=== PATIENT | female | born 1990 | race Caucasian/White ===

== ENCOUNTER → 2020-06-06 08:43 | Outpatient (BNVA) | payer OTHER, SELFPAY | PROVIDERS: PCP Nurse Practitioner Adult Health; Visit Provider Physician Assistant ==

== ENCOUNTER 2020-06-15 10:20 | Outpatient (REF) | payer OTHER, SELFPAY ==
--- NOTE | ~2020-06-15 | XR_ITS ---
EXAMINATION: XR CHEST CLINICAL INFORMATION: Shortness of breath COMPARISON: None TECHNIQUE: 2 views of the chest were obtained. FINDINGS: No significant abnormality is noted involving the heart, lungs, mediastinum, bony thorax or soft tissues. XR/XR chest 2V IMPRESSION: Unremarkable examination.
--- NOTE | 2020-06-15 10:29 | ECG_ITS ---
Test Reason : SOB Blood Pressure : / mmHG Vent. Rate : 061 BPM Atrial Rate : 061 BPM P-R Int : 184 ms QRS Dur : 078 ms QT Int : 392 ms P-R-T Axes : 032 009 006 degrees QTc Int : 394 ms Normal sinus rhythm Cannot rule out Inferior infarct , age undetermined Abnormal ECG No previous ECGs available Referred By: Ashlee Martin Electronically Signed By:MILLIE METZ MD
[2020-06-15 10:59] LABS: MANUAL DIFF FLAG NO
[2020-06-15 11:04] LABS: Basophils Percent Auto 0.4 % (0-2); Eosinophils Absolute Auto 0.3 X10*3/uL (0.0-0.4); Eosinophils Percent Auto 5.7 % (0-4); Hemoglobin 13.6 g/dl (12.0-16.0); Imm Gran Abs Auto 0.01 X10*3/uL (0.00-0.03); Imm Gran Pct Auto 0.2 % (0.0-0.4); Lymphocytes Absolute Auto 1.9 X10*3/uL (1.2-4.9); Lymphocytes Percent Auto 35.6 % (20-40); Mean Corpuscular HGB Conc 33.2 g/dl (31.0-35.0); Mean Corpuscular Hemoglobin 27.5 pg (27.0-33.0); Mean Platelet Volume 9.7 fL (9.4-12.3); Monocytes Absolute Auto 0.5 X10*3/uL (0.1-1.2); Monocytes Percent Auto 9.1 % (2-11); Neutrophils Absolute Auto 2.6 X10*3/uL (2.0-8.3); Platelet Count 279 X10*3/uL (160-400); Red Blood Count 4.94 X10*6/uL (4.20-5.50); Red Cell Distribution Width 13.4 % (11.0-16.0); White Blood Count 5.3 X10*3/uL (4.8-10.8)
[2020-06-15 11:39] LABS: Alanine Aminotransferase 22 U/L (0-31); Albumin Level 4.1 g/dL (3.5-5.0); Alkaline Phosphatase 89 U/L (39-117); Anion Gap 12 (12-20); Aspartate Amino Transferase 21 U/L (5-31); Bilirubin Total 0.6 mg/dL (0.0-1.0); Blood Urea Nitrogen 17 mg/dL (9-16); C Reactive Protein 1.25 mg/dL (< or = 0.50); Calcium 9.1 mg/dL (8.4-10.2); Carbon Dioxide 23 mmol/L (22-29); Chloride 109 mmol/L (96-108); Cholesterol 156 mg/dL; Estimated Glomerular Filt Rate > 60; Glucose Fasting 96 mg/dL (60-99); HDL Cholesterol 48 mg/dL; Iron 36 mcg/dL (30-160); LDL Cholesterol Calculated 100 mg/dl; Percent Iron Saturation 11 % (15-50); Potassium 4.1 mmol/L (3.3-5.1); Sodium 140 mmol/L (135-145); Total Iron Binding Capacity 336 mcg/dL (228-428); Total Protein 6.6 g/dL (6.5-8.0); Triglycerides 44 mg/dL; Unsaturated Iron Binding 300 ug/dL
[2020-06-15 12:23] LABS: Folate 11.7 ng/mL (> or = 4.0); Vitamin B12 308 pg/mL (200-900)
[2020-06-15 12:34] LABS: Estimated Average Glucose 85 mg/dL; Hemoglobin A1c % 4.6 %
[2020-06-15 12:35] LABS: TSH reflex Free T4 2.24 uIU/mL (0.32-4.0); Vitamin D 25-OH Total 10.4 ng/mL (>30)
[2020-06-15 13:05] LABS: Ferritin 59 ng/mL (10-122)
[2020-06-16 11:51] LABS: Insulin Level Total 8.6 uIU/mL
[2020-06-16 13:06] LABS: Calcium (PTHI) 9.2 mg/dL (8.6-10.2); PTHI 62 pg/mL (14-64)
[2020-06-16 15:07] LABS: H Pylori Breath Test NOT DETECTED (NOT DETECTED)
[2020-06-18 00:21] LABS: Zinc 60 mcg/dL (60-130)
[2020-06-19 10:16] LABS: Vitamin A 36 mcg/dL (38-98)
[2020-06-19 13:27] LABS: Vitamin B1 11 nmol/L (8-30)
== END 2020-06-15 10:21 | disposition home or self-care (01) ==
LOC: HO.LAB 10:20
PROVIDERS: Visit Provider Physician Assistant
DX: R06.02 Shortness of breath (principal); E66.01 Morbid (severe) obesity due to excess calories
CPT/HCPCS: 36415; 71046; 80053; 80061; 82306; 82607; 82728; 82746; 83013; 83036; 83525; 83540; 83970; 84425; 84443; 84590; 84630; 85025; 86140; 93005

== ENCOUNTER → 2020-06-21 14:21 | Outpatient (BNVA) | payer OTHER, SELFPAY | PROVIDERS: PCP Nurse Practitioner Adult Health; Visit Provider Surgery ==

== ENCOUNTER → 2020-07-05 08:16 | Outpatient (BNVA) | payer OTHER, SELFPAY | PROVIDERS: PCP Nurse Practitioner Adult Health; Visit Provider Dietitian, Registered | DX: E66.9 Obesity, unspecified (principal); Z68.39 Body mass index [BMI] 39.0-39.9, adult | CPT/HCPCS: 97802 ==

== ENCOUNTER → 2020-07-22 09:10 | Outpatient (BNVA) | payer OTHER, SELFPAY | PROVIDERS: PCP Nurse Practitioner Adult Health; Visit Provider Surgery ==

== ENCOUNTER → 2020-08-12 11:41 | Outpatient (BNVA) | payer OTHER, SELFPAY | PROVIDERS: PCP Nurse Practitioner Adult Health; Visit Provider Physician Assistant ==

== ENCOUNTER 2020-09-30 13:26 | Outpatient (REF) | payer OTHER, SELFPAY ==
[2020-09-30 15:33] LABS: Vitamin D 25-OH Total 47.1 ng/mL (>30)
[2020-10-01 16:15] LABS: Folate 17.1 ng/mL (> or = 4.0); Vitamin B12 622 pg/mL (200-900)
== END 2020-09-30 13:27 | disposition home or self-care (01) ==
LOC: HO.LAB 13:26
PROVIDERS: Physician Assistant; PCP Nurse Practitioner Adult Health; Visit Provider Surgery
DX: E55.9 Vitamin D deficiency, unspecified (principal); E53.8 Deficiency of other specified B group vitamins; E50.9 Vitamin A deficiency, unspecified; E66.9 Obesity, unspecified; Z71.3 Dietary counseling and surveillance; Z79.899 Other long term (current) drug therapy; Z68.38 Body mass index [BMI] 38.0-38.9, adult
CPT/HCPCS: 36415; 82306; 82607; 82746; 84590

== ENCOUNTER → 2021-01-09 12:57 | Outpatient (BNVA) | payer OTHER, SELFPAY | PROVIDERS: PCP Nurse Practitioner Adult Health; Referring Provider Nurse Practitioner Adult Health; Visit Provider Physician Assistant Surgical ==

== ENCOUNTER → 2021-02-03 08:02 | Outpatient (BNVA) | payer OTHER, SELFPAY | PROVIDERS: PCP Nurse Practitioner Adult Health; Visit Provider Surgery ==

== ENCOUNTER → 2021-02-21 09:01 | Outpatient (REF) | payer OTHER, SELFPAY ==
--- NOTE | 2021-02-21 09:05 | CA_ITS ---
Acquisition Time: 2021-02-21 09:04:38 Total Exercise Time: 00:07:28 Test Indications: abn ekg, preop Medications: see chart Protocol: LAURENCE Max HR: 176 BPM 93% of Pred: 189 BPM Max BP: 166/080 mmHG Max Work Load: 9.2 METS Exercise stress test with exercise 7 min 28 sec of Laurence protocol, without anginal symptoms, without arrythmia, with normotensive response to exercise, without EKG changes meeting criteria for ischemia. Test reviewed with Dr Olivera. Referred By: Landon Stewart Overread By: MAXIMILIANO TINAJERO
== END ==
LOC: HO.CARD 09:01
PROVIDERS: Visit Provider Surgery
DX: R94.31 Abnormal electrocardiogram [ECG] [EKG] (principal)
CPT/HCPCS: 93017

== ENCOUNTER 2021-02-23 08:39 | Outpatient (REF) | payer OTHER, SELFPAY ==
--- NOTE | ~2021-02-23 | FL_ITS ---
EXAMINATION: XR FLUOROSCOPY UPPER GI WITH AIR CLINICAL INFORMATION: Obesity. COMPARISON: None TECHNIQUE: Routine upper GI air-contrast study was performed. FINDINGS: Following oral administration of thick barium and effervescent granules, there is normal propagation of bolus from the oral cavity through the esophagus and into the stomach without any evidence of obstruction, narrowing or stricture. The course, caliber and peristalsis of the stomach and the duodenum is normal. There is mild flocculation of barium in the stomach likely from hyperacidity. The course, caliber and peristalsis of the stomach and the duodenal bulb are normal. The mucosal pattern of the stomach and the above is normal. There is mild gastroesophageal reflux without hiatal hernia. FLUOROSCOPY TIME: 1.7 minutes DOSE AREA PRODUCT: 30.015 uGy-m2 (microgray-meter squared) FL/FL upper GI w air IMPRESSION: Mild gastroesophageal reflux without hiatal hernia.
--- NOTE | ~2021-02-23 | US_ITS ---
EXAMINATION: US COMPLETE ABDOMEN WITH LIVER ELASTOGRAPHY CLINICAL INFORMATION: Obesity COMPARISON: None. TECHNIQUE: Real-time imaging of the abdominal viscera. Noninvasive ultrasound liver fibrosis assessment is performed using Gadiel ElastPQ point quantification shear wave elastography (pSWE) with a C5-2 MHz transducer. Multiple elastography samples are obtained. FINDINGS: PANCREAS: Normal. The visualized pancreatic head and body are normal in appearance. The remainder of the pancreas is obscured from visualization by the overlying bowel gas. ABDOMINAL AORTA: The proximal, middle, and distal aortic segments are normal in caliber. INFERIOR VENA CAVA: Visualized portions are normal. LIVER: Normal. The liver demonstrates normal size, contour and echogenicity. No focal lesion or intrahepatic biliary duct dilatation. The right lobe measures 15.1 cm in length. The left lobe measures 11.6 cm in length. Portal flow is hepatopedal Shear wave liver elastography median stiffness is 1.53 m/s (reference: normal median stiffness is 1.3 m/s or less). IQR/median stiffness to assess sampling precision is 0.18 (reference: good quality data set is IQR/median stiffness of 0.15 or less). GALLBLADDER: Cholelithiasis is noted without evidence of acute cholecystitis. COMMON BILE DUCT: Normal in caliber measuring 0.3 cm in diameter. RIGHT KIDNEY: Normal. No hydronephrosis. No renal calculi or focal parenchymal lesions. The kidney measures 10.5 cm in maximum dimension. LEFT KIDNEY: Normal. No hydronephrosis. No renal calculi or focal parenchymal lesions. The kidney measures 11.5 cm in maximum dimension. SPLEEN: Normal. The spleen measures 11.5 cm in maximum dimension. FREE FLUID: None. US/US abdomen comp w elastography IMPRESSION: 1. Cholelithiasis without evidence of acute cholecystitis. 2. Liver elastography: Although measurements appear to rule out compensated advanced chronic liver disease, there is statistical variability of the sampling which decreases accuracy. REFERENCE: Society of Radiologists in Ultrasound Liver Stiffness Thresholds (2020): LIVER STIFFNESS THRESHOLDS: *Liver Stiffness equal or less than 1.3 m/s: High probability of being normal. *Liver Stiffness less than 1.7 m/s: In the absence of other known clinical signs, rules out compensated advanced chronic liver disease. *Liver Stiffness 1.7-2.1 m/s: Suggestive of compensated advanced chronic liver disease but need further test for confirmation. *Liver Stiffness over 2.1 m/s: Rules in compensated advanced chronic liver disease. *Liver Stiffness over 2.4 m/s: Suggestive of clinically significant portal hypertension. QUALITY OF DATA SET: *IQR/Median value equal or less than 0.15 implies a quality data set. *IQR/Median value over 0.15 implies a poor quality data set. SIGNIFICANT CHANGE FROM PRIOR EXAM: Significant change if liver stiffness measurement is 10% or greater from prior exam. OTHER CONSIDERATIONS: The stage of liver fibrosis may be overestimated in the setting of acute hepatitis, liver inflammation, elevated liver function tests, hepatic vascular congestion, obstructive cholestasis, non-fasting state, and infiltrative diseases such as amyloidosis and lymphoma. In some patients with NAFLD, the liver stiffness thresholds for compensated advanced chronic liver disease may be lower. In causes other than viral hepatitis and NAFLD, liver stiffness thresholds are not well established.
== END 2021-02-23 08:40 | disposition home or self-care (01) ==
LOC: HO.US 08:39
PROVIDERS: Visit Provider Surgery
DX: Z01.818 Encounter for other preprocedural examination (principal); E66.9 Obesity, unspecified; K21.9 Gastro-esophageal reflux disease without esophagitis
CPT/HCPCS: 74246; 76705; 76981

== ENCOUNTER → 2021-02-28 08:05 | Outpatient (BNVA) | payer OTHER, SELFPAY | PROVIDERS: PCP Nurse Practitioner Adult Health; Visit Provider Surgery ==

== ENCOUNTER → 2021-03-03 13:15 | Outpatient (BNVA) | payer OTHER, SELFPAY | PROVIDERS: PCP Nurse Practitioner Adult Health; Visit Provider Physician Assistant ==

== ENCOUNTER 2021-03-07 08:27 | Inpatient (IN) | payer OTHER, SELFPAY ==
[2021-02-27 12:03] VITALS: BMI 36.3
[2021-03-03 12:22] LABS: MANUAL DIFF FLAG NO
[2021-03-03 12:36] LABS: Basophils Percent Auto 0.5 % (0-2); Eosinophils Absolute Auto 0.3 X10*3/uL (0.0-0.4); Hematocrit 43.8 % (37.0-47.0); Hemoglobin 14.5 g/dl (12.0-16.0); Imm Gran Abs Auto 0.01 X10*3/uL (0.00-0.03); Imm Gran Pct Auto 0.2 % (0.0-0.4); Lymphocytes Absolute Auto 1.8 X10*3/uL (1.2-4.9); Lymphocytes Percent Auto 29.4 % (20-40); Mean Corpuscular HGB Conc 33.1 g/dl (31.0-35.0); Mean Corpuscular Hemoglobin 27.9 pg (27.0-33.0); Mean Corpuscular Volume 84.4 fL (80.0-98.0); Mean Platelet Volume 10.1 fL (9.4-12.3); Monocytes Absolute Auto 0.5 X10*3/uL (0.1-1.2); Monocytes Percent Auto 7.4 % (2-11); Neutrophils Absolute Auto 3.5 x10*3/uL (2.0-8.3); Neutrophils Percent Auto 57.5 % (45-73); Platelet Count 256 X10*3/uL (160-400); Red Blood Count 5.19 X10*6/uL (4.20-5.50); Red Cell Distribution Width 13.1 % (11.0-16.0); White Blood Count 6.1 X10*3/uL (4.8-10.8)
[2021-03-03 12:41] LABS: Estimated Average Glucose 88 mg/dL; Hemoglobin A1c % 4.7 %; INTERNATIONAL NORM RATIO 1.1 (0.9-1.1); Prothrombin Time 12.5 SEC (9.9-13.0)
[2021-03-03 13:01] LABS: Alanine Aminotransferase 19 U/L (0-31); Albumin Level 4.3 g/dL (3.5-5.0); Alkaline Phosphatase 92 U/L (39-117); Anion Gap 15 (12-20); Aspartate Amino Transferase 17 U/L (5-31); Bilirubin Total 1.4 mg/dL (0.0-1.0); Blood Urea Nitrogen 18 mg/dL (9-16); C Reactive Protein 0.57 mg/dL (< or = 0.50); Calcium 9.6 mg/dL (8.4-10.2); Carbon Dioxide 21 mmol/L (22-29); Chloride 107 mmol/L (96-108); Cholesterol 150 mg/dL; Creatinine Clr Calc Pharmacy 109.3; Estimated Glomerular Filt Rate > 60; Glucose Random 79 mg/dL (60-115); HDL Cholesterol 41 mg/dL; LDL Cholesterol Calculated 99 mg/dl; Potassium 4.2 mmol/L (3.3-5.1); Sodium 139 mmol/L (135-145); Triglycerides 50 mg/dL
[2021-03-03 13:25] LABS: Insulin 6 uU/mL (2-29); TSH reflex Free T4 1.33 uIU/mL (0.32-4.0)
--- NOTE | 2021-03-04 22:08 | MHC.SHP ---
Pre-Procedural Eval Section A Date of Service: 03/04/21 The patient is an INPATIENT: Yes The History & Physical has been completed within 30 days and I have reviewed it.: Yes Section B Chief Complaint: obesity Relevant Family History (Specify if Yes): No Relevant Social History: None Present Medications: None Medical History: No relevant PMH History of Previous Operations: No relevant previous surgery Allergies: Allergies Allergy/AdvReac Type Severity Reaction Status Date / Time amoxicillin Allergy Intermediate Rash Verified 02/28/21 12:16 erythromycin base Allergy rash Verified 02/28/21 12:16 [From Erythrocin] Review of Systems Sugical H&P ROS: Negative: Constitution, Cardiovascular, Respiratory, Neurological, Psychiatric, Hem-Onc, Allergic/Immunologic, Gastrointestinal, Genitourinary, Musculoskeletal, Integumentary, Endocrine and Eyes/Ears/Nose/Throat Exam Surgical H&P Exam: Normal: HEENT, Normal: Heart, Normal: Lungs, Normal: Extremities, Normal: Abdomen, Normal: Skin and Normal: Neurological Plan Diagnosis/Plan: Unchanged I have reviewed the history and physical and performed a pertinent physical examination on my patient. No changes have occurred unless specified.
--- NOTE | 2021-03-06 10:46 | HO.ANESPROP2 ---
Documented by User: Samantha Paulson NP 03/06/21 10:48 [facility] Active Problems Active Problems: All Active Problems (Updated 02/28/21 @ 12:30 by Landno Stewart MD) BMI 36.0-36.9,adult (Acute) BMI 37.0-37.9, adult (Acute) Abnormal EKG (Acute) BMI 38.0-38.9,adult (Acute) Obesity (Acute) BMI 39.0-39.9,adult (Acute) Vitamin A deficiency (Acute) Vitamin B12 deficiency (Acute) Vitamin D deficiency (Acute) ADHD (attention deficit hyperactivity disorder) (Acute) Major depressive disorder (Acute) Morbid obesity (Acute) Past Medical History Medical History ADHD (attention deficit hyperactivity disorder) Major depressive disorder Morbid obesity Vitamin A deficiency Vitamin B12 deficiency Vitamin D deficiency Family History Family History Father History of obesity Mother History of high blood pressure Surgical History Surgical History No significant past surgical history Social History Social History Are you a primary urgent care technician to a significant other at home: No Do you presently have visiting nurse or other home services: No Alcohol intake: current Alcohol intake frequency: holidays/special occasions only Patient Tobacco Use Status: Never used Tobacco Use of substances other than those prescribed or required for medical reasons: No Have you been hit, kicked, punched, or otherwise hurt by someone within the past year? If so, by whom?: No Are you DNR?: No Advance Directives: No Advance Directives Information Provided: Yes (Mailed w/ Pre-op Instructions) Advance Directives on File: No Recently lost weight without trying: No How much weight loss: 24-33 pounds Eating poorly because of decreased appetite: No Nutrition screen score: 3 Nutrition Risks: No Nutritional Risk Patient : No FDLMP: 09/2020 : No Poor oral hygiene: No (Intact teeth) Meds Allergies Allergy/AdvReac Type Severity Reaction Status Date / Time amoxicillin Allergy Intermediate Rash Verified 02/28/21 12:16 erythromycin base Allergy rash Verified 02/28/21 12:16 [From Erythrocin] Home Medications Medication Instructions Recorded Confirmed Last Taken Type desvenlafaxine succinate 50 mg 50 mg PO DAILY 06/06/20 02/28/21 Unknown History tablet,extended release 24 hr (Pristiq) dextroamphetamine-amphetamine 20 20 mg PO BID 06/06/20 02/28/21 Unknown History mg tablet (Adderall) medroxyprogesterone 104 mg/0.65 mL mg SUBCUT 01/09/21 02/28/21 Unknown History subcutaneous syringe (Depo-SubQ provera 104) Exam Exam Date and Time: March 06, 2021 1046 Height,Weight and Vital Signs: Height 5 ft 7 in Weight 105.233 kg Pertinent Lab Results Pertinent Lab Results: Laboratory Tests 03/03/21 03/03/21 03/03/21 12:15 12:20 12:20 WBC 6.1 RBC 5.19 Hgb 14.5 Hct 43.8 MCV 84.4 MCH 27.9 MCHC 33.1 RDW 13.1 Plt Count 256 MPV 10.1 Immature Gran % (Auto) 0.2 Neut % (Auto) 57.5 Lymph % (Auto) 29.4 Whitfield % (Auto) 7.4 Eos % (Auto) 5.0 H Baso % (Auto) 0.5 Lymph # (Auto) 1.8 Whitfield # (Auto) 0.5 Eos # (Auto) 0.3 Baso # (Auto) 0.0 Abs Immat Gran (auto) 0.01 Absolute Neuts (auto) 3.5 Absolute Nucleated RBC 0.000 Nucleated RBC % (auto) 0.0 PT 12.5 INR 1.1 APTT 44.0 H Sodium Potassium Chloride Carbon Dioxide Anion Gap BUN Creatinine Estim Creat Clear Calc Estimated GFR Random Glucose Estimat Average Glucose Hemoglobin A1c % Insulin Level Calcium Total Bilirubin AST ALT Alkaline Phosphatase C-Reactive Protein Total Protein Albumin Triglycerides Cholesterol LDL Cholesterol, Calc HDL Cholesterol TSH Blood Type O Negative Antibody Screen NEGATIVE 03/03/21 03/03/21 12:20 12:20 WBC RBC Hgb Hct MCV MCH MCHC RDW Plt Count MPV Immature Gran % (Auto) Neut % (Auto) Lymph % (Auto) Whitfield % (Auto) Eos % (Auto) Baso % (Auto) Lymph # (Auto) Whitfield # (Auto) Eos # (Auto) Baso # (Auto) Abs Immat Gran (auto) Absolute Neuts (auto) Absolute Nucleated RBC Nucleated RBC % (auto) PT INR APTT Sodium 139 Potassium 4.2 Chloride 107 Carbon Dioxide 21 L Anion Gap 15 BUN 18 H Creatinine 0.93 Estim Creat Clear Calc 109.3 Estimated GFR > 60 Random Glucose 79 Estimat Average Glucose 88 Hemoglobin A1c % 4.7 Insulin Level 6 Calcium 9.6 Total Bilirubin 1.4 H AST 17 ALT 19 Alkaline Phosphatase 92 C-Reactive Protein 0.57 H Total Protein 7.0 Albumin 4.3 Triglycerides 50 Cholesterol 150 LDL Cholesterol, Calc 99 HDL Cholesterol 41 TSH 1.33 Blood Type Antibody Screen Narrative Narrative: EKG 05/2020 Vent. Rate : 061 BPM ? ? Atrial Rate : 061 BPM ?? P-R Int : 184 ms? QRS Dur : 078 ms ? ? QT Int : 392 ms ? ? ? P-R-T Axes : 032 009 006 degrees ?? QTc Int : 394 ms ? Normal sinus rhythm Cannot rule out Inferior infarct , age undetermined Abnormal ECG No previous ECGs available Exercise stress 02/2021 Protocol: RAJI ? Max HR: 176 BPM? 93% of? Pred: 189 BPM Max BP: 166/080 mmHG Max Work Load: 9.2 METS ? Exercise stress test with exercise 7 min 28 sec of Raji protocol, without ?anginal symptoms, without arrythmia, with normotensive response to exercise, ?without EKG changes meeting criteria for ischemia. Test reviewed with Dr Olivera. Assessment and Plan Assessment Anesthesia Assessment: Chart Reviewed Documented by User: Nicole Patel MD 03/07/21 10:25 HPI - Anesthesia Eval Consult details Narrative: 30yo female patient for EGD, Sleeve gastrectomy, possible diaphragmatic hernia repair, possible ventral hernia repair, possible open PMFSH Past Medical History Medical History ADHD (attention deficit hyperactivity disorder) Major depressive disorder Morbid obesity Vitamin A deficiency Vitamin B12 deficiency Vitamin D deficiency Family History Family History Father History of obesity Mother History of high blood pressure Family history of problems with anesthesia: No Surgical History Surgical History No significant past surgical history History of Problems with Anesthesia: No Social History Social History Are you a primary urgent care technician to a significant other at home: No Do you presently have visiting nurse or other home services: No Alcohol intake: current Alcohol intake frequency: holidays/special occasions only Patient Tobacco Use Status: Never used Tobacco Use of substances other than those prescribed or required for medical reasons: No Have you been hit, kicked, punched, or otherwise hurt by someone within the past year? If so, by whom?: No Are you DNR?: No Advance Directives: No Advance Directives Information Provided: Yes (Mailed w/ Pre-op Instructions) Advance Directives on File: No Recently lost weight without trying: No How much weight loss: 24-33 pounds Eating poorly because of decreased appetite: No Nutrition screen score: 3 Nutrition Risks: No Nutritional Risk Patient : No FDLMP: 09/2020 : No Poor oral hygiene: No (Intact teeth) Meds Allergies Allergy/AdvReac Type Severity Reaction Status Date / Time amoxicillin Allergy Intermediate Rash Verified 02/28/21 12:16 erythromycin base Allergy rash Verified 02/28/21 12:16 [From Erythrocin] Home Medications Medication Instructions Recorded Confirmed Last Taken Type desvenlafaxine succinate 50 mg 50 mg PO DAILY 06/06/20 02/28/21 Unknown History tablet,extended release 24 hr (Pristiq) dextroamphetamine-amphetamine 20 20 mg PO BID 06/06/20 02/28/21 Unknown History mg tablet (Adderall) medroxyprogesterone 104 mg/0.65 mL mg SUBCUT 01/09/21 02/28/21 Unknown History subcutaneous syringe (Depo-SubQ provera 104) Exam Height,Weight and Vital Signs: Height 5 ft 7 in Weight 105.233 kg Vital Signs Temp Pulse Resp BP Pulse Ox 03/07/21 08:49 98.1 F 75 16 104/69 98 Pertinent Lab Results Pertinent Lab Results: Laboratory Tests 03/03/21 03/03/21 03/03/21 12:15 12:20 12:20 WBC 6.1 RBC 5.19 Hgb 14.5 Hct 43.8 MCV 84.4 MCH 27.9 MCHC 33.1 RDW 13.1 Plt Count 256 MPV 10.1 Immature Gran % (Auto) 0.2 Neut % (Auto) 57.5 Lymph % (Auto) 29.4 Whitfield % (Auto) 7.4 Eos % (Auto) 5.0 H Baso % (Auto) 0.5 Lymph # (Auto) 1.8 Whitfield # (Auto) 0.5 Eos # (Auto) 0.3 Baso # (Auto) 0.0 Abs Immat Gran (auto) 0.01 Absolute Neuts (auto) 3.5 Absolute Nucleated RBC 0.000 Nucleated RBC % (auto) 0.0 PT 12.5 INR 1.1 APTT 44.0 H Sodium Potassium Chloride Carbon Dioxide Anion Gap BUN Creatinine Estim Creat Clear Calc Estimated GFR Random Glucose Estimat Average Glucose Hemoglobin A1c % Insulin Level Calcium Total Bilirubin AST ALT Alkaline Phosphatase C-Reactive Protein Total Protein Albumin Triglycerides Cholesterol LDL Cholesterol, Calc HDL Cholesterol TSH Blood Type O Negative Antibody Screen NEGATIVE 03/03/21 03/03/21 12:20 12:20 WBC RBC Hgb Hct MCV MCH MCHC RDW Plt Count MPV Immature Gran % (Auto) Neut % (Auto) Lymph % (Auto) Whitfield % (Auto) Eos % (Auto) Baso % (Auto) Lymph # (Auto) Whitfield # (Auto) Eos # (Auto) Baso # (Auto) Abs Immat Gran (auto) Absolute Neuts (auto) Absolute Nucleated RBC Nucleated RBC % (auto) PT INR APTT Sodium 139 Potassium 4.2 Chloride 107 Carbon Dioxide 21 L Anion Gap 15 BUN 18 H Creatinine 0.93 Estim Creat Clear Calc 109.3 Estimated GFR > 60 Random Glucose 79 Estimat Average Glucose 88 Hemoglobin A1c % 4.7 Insulin Level 6 Calcium 9.6 Total Bilirubin 1.4 H AST 17 ALT 19 Alkaline Phosphatase 92 C-Reactive Protein 0.57 H Total Protein 7.0 Albumin 4.3 Triglycerides 50 Cholesterol 150 LDL Cholesterol, Calc 99 HDL Cholesterol 41 TSH 1.33 Blood Type Antibody Screen Laboratory Results - last 24 hr 03/06/21 03/07/21 12:25 08:35 Urine Test NEGATIVE COVID-19 (DEEJAY) Negative COVID-19 Clin Com See Note Airway Mallampati Class: II TM Dist: >3cm Neck ROM: Full Loose/Missing/Broken Teeth: No Heart: RRR Lungs: CTAB Assessment and Plan Assessment Anesthesia Assessment: Anesthesia Plan Discussed Final Anesthetic Review Family History of Problems with Anesthesia: No History of Problems with Anesthesia: No NPO: Yes ASA Class: III Final Preanesthetic Review: No Changes in Pt Med Stat, Meds/Allgs Chart Reviewed, Consent Obtained/Reviewed and Anes Risks/Benef Reviewed Patient Risk: Intermediate Procedure Risk: Intermediate Assessment/Block/Sedation in SS: Assess/Block/Sedation-SS Anesthetic Plan Anesthetic Plan: GA Disposition: Standard PACU and Inp. Admit - Standard Bed
[2021-03-06 13:01] LABS: COVID-19 Test Negative (Negative)
[2021-03-07] VITALS (15 sets, daily range): BP systolic 104–171; BP diastolic 69–97; PULSE 51–101; RESP 14–18; TEMP 36.5–36.8; O2SAT 94–100
[2021-03-07 08:56] LABS: UPreg QC Valid YES; Urine Pregnancy NEGATIVE (NEGATIVE)
[2021-03-07] MEDS: Lactated Ringers 1,000 ML 999 ML IV (08:58)
[2021-03-07] MEDS: Lactated Ringers 1,000 ML 100 ML IVCONT ×2 (08:59→15:23)
[2021-03-07] MEDS: levoFLOXacin/D5W 500 MG/100 ML PIGGYBACK 100 MG IV (10:39)
--- NOTE | 2021-03-07 13:03 | P.DS_ITS ---
DS: Providers Provider Date of Service: 03/08/21 Date of admission: 03/07/21 08:27 Primary care physician: Ama Arroyo NP DS: Summary Hospital Course Hospital Course: ADMITTING DIAGNOSIS: morbid obesity, ADHD, diaphragmatic hernia DISCHARGE DIAGNOSIS: same, s/p laparoscopic sleeve gastrectomy and repair diaphragmatic hernia PAST SURGICAL HISTORY: none PROCEDURE: upper endoscopy, laparoscopic sleeve gastrectomy and repair of diaphragmatic hernia hernia DISCHARGE SUMMARY: History of Present Illness: The patient is a 30 year-old woman with a BMI of 40.6kg/m2 and associated co- morbidities as described above. The patient had extensive work-up,lost 31.1 lbs preoperatively and was electively scheduled for laparoscopic, possible open sleeve gastrectomy and gastropexy. Risks and complications of the surgery were discussed with the patient in advance, particularly the possibility of , pulmonary embolism, anastomotic leak, bleeding, bowel injury, GERD, cardiac, renal or pulmonary complications. The patient understood all the risks and was in agreement with the surgical plan. Hospital Course: The patient underwent an uneventful laparoscopic sleeve gastrectomy with gastropexy and repair of diaphragmatic hernia on the day of admission. Postoperatively, the patient was transferred to the surgical floor. The patient received IV Acetaminophen and IV dilaudid for pain control. Patient was started on bariatric phase 1 diet POD #0. On postoperative day one, the patient was feeling well without nausea, vomiting, fevers, or tachycardia. The patient had some mild incisional pain and the abdomen was soft. On the morning of postoperative day one, the patient was continued on 1 ounce of water or ice every half hour. During the day, the patient did fairly well, having some incisional pain, but able to ambulate adequately and to tolerate liquids well. Since the patient is doing well, we decided that the patient was ready to be discharged. The patient was given instructions to follow-up with me next week and to call my office for any fever over 101, persistent abdominal pain, nausea, vomiting, GERD, symptoms of DVT such as calf tenderness, or leg swelling, or pulmonary embolism such as chest pain or shortness of breath. The patient was also instructed to drink 40-60 ounces of liquids per day using the 1-ounce cups. The patient had been given prescriptions for Tylenol for pain, Zofran prn for nausea, and pantoprazole and carafate previously. The patient was encouraged to ambulate and use the incentive spirometer. The patient was allowed to shower, but no baths, and encouraged to stay active at home. All of these instructions were given to the patient personally. All questions were answered and the patient understood all instructions, the instructions were also given to the patient in print. Time Spent with Patient Time attestation: Total time spent providing and/or coordinating discharge services: Discharge coordination time: Less than 30 minutes Quality: Stroke Does the patient have a stroke diagnosis?: No Physical Exam Vital Signs: Vital Signs: Last Vital Signs Temp 98.1 F 03/07/21 08:49 Pulse 75 03/07/21 08:49 Resp 16 03/07/21 08:49 BP 104/69 03/07/21 08:49 Pulse Ox 98 03/07/21 08:49 BMI result Body Mass Index 36.3 DS: Data Data Completed and Pending Pending studies at discharge: Pending at discharge 03/07/21 12:05 Surgical [PTH] Routine Labs on day of discharge: Laboratory Results - last 24 hr 03/07/21 08:35 Urine Test NEGATIVE Discharge Plan Discharge Anticipated Discharge Date/Time: 03/08/21 10:00 Patient Disposition: Home, Self-Care Discharge Diagnosis: s/p sleeve gastrectomy and paraesophageal hernia repair Referrals: Ama Arroyo NP [Primary Care Provider] - 1 Week Discharge Medications: Continued dextroamphetamine-amphetamine [Adderall] 20 mg tablet 20 mg PO BID RF: 0 desvenlafaxine succinate [Pristiq] 50 mg tablet extended release 24 hr 50 mg PO DAILY RF: 0 pantoprazole 40 mg tablet,delayed release (DR/EC) 40 mg PO DAILY Qty: 30 RF: 2 sucralfate 100 mg/mL suspension 10 ml PO BID Qty: 400 RF: 2 ondansetron HCl 4 mg tablet 4 mg PO Q12H Qty: 20 RF: 0 Depo-SubQ provera 104 104 mg/0.65 mL syringe subcut RF: 0 Discontinued polyethylene glycol 3350 [Miralax] 17 gram powder in packet 17 g PO DAILY Qty: 14 RF: 2 Discharge Orders: Discharge Order (Routine); Ordered 03/08/21 Ordered By: Landon Stewart Diet: other Activity on Discharge: No heavy lifting Stand Alone Forms: Patient Portal Discharge page Care Plan Goals: weight loss Health Concerns: obesity Plan of Treatment: No tub baths, sex or returning to work until discussed at first post op appointment. No exercise, alcohol, tobacco or illegal drug use. Continue to use incentive spirometer hourly while awake. Walk in home for 5- 10 minutes every 2 hours during the first week. Continue phase 1 diet today and start phase 2 diet tomorrow morning. Follow all instructions in the bariatric handbook and call with any questions. 1. Please call your doctor or come back to the emergency room should any new symptoms arise. 2. You will receive a courtesy call from [facility] 24-48 hours after discharge. 3. Activity: abstain from alcohol, practice limited stair climbing, no bending, no driving, no exercise, no illicit substances, no lifting, no sex, no tub bath, no work. 4. Diet: continue as discussed with Dr. Stewart. 5. Dressing Change/Wound Care: Do not change or remove surgical dressings unless they are wet or soiled. 6. Call your doctor if: - Your temperature exceeds 101.5 F - You experience excessive pain or swelling - You have an unexpected reaction to medication - You have excessive bleeding - You experience continued vomiting/nausea - Your incision begins to separate - Your incision shows signs of infection such as increased redness, swelling, excessive pain, heat, or drainage (light blood or clear fluid is normal) 7. General instructions: No lifting greater than 5 lbs for the next 4 weeks[address] driving within 24 hours of taking narcotic pain medications. If you do not move your bowels in the next 2 days, please take milk of magnesia over the counter. Please follow the post op diet and do not advance your diet until you are seen in the office in about 2 weeks. Please walk around your home every hour or two to prevent blood clots from forming in your legs. You do not need to wake from sleeping to walk. Please sleep in a bed or couch to prevent kinking at the hips and knees. Please take your incentive spirometer (your lung nursing specialist) home with you and use it for the next few days to prevent pneumonias. You may shower, no hot tubs, baths or swimming pools. Please call the office with any questions or concerns such as increasing abdominal pain, fever, chills, shortness of breath, chest pain, leg pain or swelling, or redness or drainage from your incisions. Do not hesitate to contact the office with any questions at . The patient's medical history has been reviewed and they are considered low risk for post op DVT and therefore DVT prophylaxis is not considered necessary. Travel after surgery was reviewed. The patient has not disclosed any travel p lans during the first 30 days after surgery and they have been advised that within the first 30 days after surgery any bus, plane, train or car travel over 2 hours in duration is contraindicated due to the possibility of developing blood clots from immobility. Any travel, needs to include periods of ambulation of 10 minutes in duration every 2 hours. The patient was instructed to discuss any plans for travel during this period with their bariatric surgeon. Assessment: stable post op sleeve gastrectomy
--- NOTE | 2021-03-07 13:03 | P.BOP_ITS ---
Brief Operative Note Date of Service: 03/07/21 Pre-op diagnosis: Severe obesity and comorbidities (see below) Post-op diagnosis: same (& diaphragmatic hernia) Procedure: INITIAL PATIENT BMI ON PRESENTATION AT OUR OFFICE: 40.6 kg/m2 LAST BMI BEFORE SURGERY: 36.2 kg/m2 COMORBIDITIES: ADHD, GERD, depression, liver steatosis, liver fibrosis ?The patient presented to the Weight Management Program with significant obesity that was negatively impacting the patient's comorbidities as listed above.? The program is a phased program with a special focus on preoperative medical weight management to promote substantial weight loss and prepare the patients for the second phase of the program: bariatric surgery. The patient participated in an intensive weekly lifestyle ?intervention and exercise program during which the patient ?has lost between the initial office visit and the last preoperative visit 33.3lbs, or12.63 % of initial actual body weight. It was deemed appropriate for the patient to now have bariatric surgery. In light of the cur rent Covid-19 pandemic and the well documented strong association of obesity and increased risk of worse outcomes if infected with Covid-19 (REFERENCES: https://pubmed.ncbi.nlm.nih.gov/80268347/ ,? https://pubmed.ncbi.nlm.nih.gov/62414981/ ), any delay in undergoing bariatric surgery may lead to the patient's worsening health condition and increased?risk of more severe Covid-19 disease if infected. In addition a recent?study from [facility] published in [facility] on 02/13/2021 ([email or web address]) found that, among patients with obesity, substantial weight loss achieved with surgery was associated with improved outcomes of COVID-19 infection. The findings suggest that obesity can be a modifiable risk factor for the severity of COVID-19 infection. In addition, the patient met the BMI-criteria for bariatric surgery based on the BMI on initial presentation. The patient should not be penalized for achieving such weight loss because ?it is not sustainable long-term without surgical intervention and it was achieved in preparation for bariatric surgery ?under my direction and based on my published research ([email or web address]).[email or web address] and? https://www.soard.org/article/G2439-8248(16)75086-X/pdf ) ?that a 10% preoperative weight loss improves long-term weight loss after surgery and reduces perioperative complications.? Insurance carriers such as [facility] have endorsed my recommendations ?and have included in their policies criteria to include a 10% preoperative weight loss requirement. PROCEDURE: Esophago-gastroscopy, laparoscopic repair of incarcerated diaphragmatic hernia, laparoscopic lysis of adhesions, laparoscopic sleeve gastrectomy and laparoscopic gastropexy INDICATIONS: This is a 30 year-old female who was electively scheduled for laparoscopic, possibly open sleeve gastrectomy. The risks and complications of the procedure were discussed with the patient in advance, particularly the possibility of ; pulmonary embolism; staple line leak; bleeding; GERD; cardiac, pulmonary, or renal complications; as well as long-term problems such as insufficient weight loss, vitamin deficiency, strictures, or ulcers. The patient understood all the risks, and was in agreement to proceed with surgery. DESCRIPTION OF PROCEDURE: After informed consent was obtained from the patient, the patient was given preoperative antibiotics, and was transferred to the operating room. After successful induction of general anesthesia, pneumatic compression devices were placed on both lower extremities. An upper endoscopy was performed next. The oropharynx and esophagus appeared to be within normal limits. There was a diaphragmatic hernia present of moderate size that was not reported at the preoperative upper GI. The stomach was entered. Then after all fluid and air were suctioned and the stomach was fully decompressed, the scope was withdrawn and secured in the mid esophagus. The patient was then prepped and draped in the usual sterile manner, and abdominal access was established at the right upper quadrant with the Norbert technique. A 12 mm blunt port was inserted, and the abdomen was insufflated with CO2 to a pressure of 15 mmHg. Under direct visualization, additional ports were placed, specifically two 5 mm Versi-step ports to the left upper quadrant, and a 5 mm Versi-Step port to the right upper quadrant. 1% lidocaine plain was used to infiltrate all port sites as well as all fascia defects. Using the EndoClose suture passer device, I placed a #1 Polysorb tie across the falciform ligament in order to retract it up against the abdominal wall and prevent injury of the ligament with our instruments during the procedure. Following that, the patient was placed in a steep reverse Trendelenburg position. An additional 5 mm port was placed to the right flank for the Mediflex retractor that was used to retract the left lobe of the liver. The gastro-esophageal fat pad was opened with the ultrasonic device (Thunderbeat, Olympus) and the anterior esophagus and hiatus were exposed. The angle of His was opened with the ultrasonic device the fundus of the stomach from any diaphragmatic and splenic attachments. I then opened the gastrocolic ligament between the transverse colon and the greater curvature of the stomach with the ultrasonic device to enter the lesser sac and facilitate the ligation of the short gastric vessels. I started at a mid-point along the greater curvature and using the Thunderbeat, all short gastric vessels were divided all the way to the angle of His until the left catrina was completely dissected at its entirety. I then divided the gastro-colic ligament distally to a distance of about 3-4 cm proximal to the esophagus. There was an obvious significant-sized hiatal hernia. I continued dissecting along the hiatus toward the left catrina and the angle of His. I fully mobilized the fat pad that was incarcerated in the hernia. I then continued by dissecting even further into the posterior retro-esophageal space all the way to the angle of His. I continued to mobilize the esophagus into the mediastinum circumferentially. Both vagal nerves were seen and preserved. At that point, I was able to have at least 3 to 5 cm of esophagus into the abdomen.? After I completely mobilized the esophagus from both the left and right catrina and I had a good mobilization of the esophagus circumferentially, I closed the hernia defect with three interrupted #0 Surgidac sutures using the Endo Stitch device, two of which was placed posterior and one of which anterior to the esophagus. ? The stomach was then divided transversely with one Endo SCARLETT-45 purple, and four SCARLETT-60 articulating orange loads using the AEON stapler and loads. Every effort was made that the gastric sleeve had a tubular shape and an even caliber throughout. Once the sleeve resection was completed, the staple line of the gastric sleeve was reinforced with Hemoclips. The resected stomach was retrieved without difficulty from the Norbert port. A gastropexy was then performed in order to prevent postoperative GERD and partial gastric volvulus. Several interrupted 2.0 Surgidac sutures were placed between the sleeve's staple line and the previously divided greater omentum and gastro-colic ligament using the Endo-Stitch device. ?An upper endoscopy was performed. There was no narrowing at the GE junction. The scope was easily advanced all the way to the pylorus which was clearly visualized. There was no narrowing anywhere and the sleeve's caliber was even throughout. The sleeve's staple line was inspected and there was no evidence of ischemia, bleeding or dehiscence. At that point the gastroscope was withdrawn from the patient?s mouth while we were decompressing the bowel and the stomach from any remaining air. I looked into the lesser sac to see how the sleeve was situating and it was situating well. There was no bleeding from the staple line, spleen, or short gastric vessels. The Mediflex retractor was removed, and the undersurface of the liver was inspected and there was no bleeding. The patient was placed in supine position. I closed the fascial defect of the 12 mm port site with a figure of eight #1 Polysorb suture. Then 100 cc 0.25 % Marcaine plain with 10 mg of Dexamethasone were used to infiltrate the fascial closure as well as all skin incisions. At this point, the abdomen was deflated, all ports were removed under direct vision, and no bleeding was noted from any of the port sites. The skin incisions were irrigated with saline and were closed with 4-0 absorbable monofilament sutures. Steri-Strips and OpSites were used to cover all incisions. The patient was extubated and was transferred in stable condition to the recovery room for further care. I was present and performed all benito parts of the procedure. Rafael Sexton was the assistant professor of art. There were no residents to assist with this case. Ashkan Stewart MD, PhD, FACS Surgeon: Landon Stewart MD Anesthesia: GETA, local and other (TAP block) Was an Meter/Relay Technician used for this Procedure?: Yes Meter/Relay Technician: Elis Sexton Estimated blood loss (mL): 10 IV fluids (mL): 2,500 Urine output (mL): 0 (No Monzon to record) Pathology: other (Stomach) Condition: stable Disposition: PACU
--- NOTE | 2021-03-07 13:07 | P.PNGS_ITS ---
Subjective Subjective Date of Service: 03/08/21 Interval history: Patient has mild incisional pain, but was able to ambulate and use the incentive spirometer. She is tolerating phase 1 bariatric diet Physical Exam Vital Signs: Vital Signs: Last Vital Signs Temp 98.1 F 03/07/21 08:49 Pulse 75 03/07/21 08:49 Resp 16 03/07/21 08:49 BP 104/69 03/07/21 08:49 Pulse Ox 98 03/07/21 08:49 BMI result Body Mass Index 36.3 GI: Inspection: Yes normal to inspection, Yes incision (clean, dry and intact) and Yes obesity Extrem: Right lower extremity: normal to inspection (no calf tenderness) Left lower extremity: normal to inspection (no calf tenderness) Objective Data Active Medications Fentanyl (Fentanyl Citrate/Pf 100 Mcg/2 Ml Vial) 25 mcg IVPUSH Q5M PRN; Protocol PRN Reason: Pain, Moderate (Pain Scale 4-6 Hydromorphone HCl (Hydromorphone Hcl 0.5 Mg/0.5 Ml Syringe) 0.25 mg IVPUSH Q5M PRN; Protocol PRN Reason: Pain, Severe (Pain Scale 7-10) Lactated Ringer's (Lr) 1,000 mls @ 100 mls/hr IVCONT .Q10H LOLY Last Admin: 03/07/21 08:59 Dose: 100 mls/hr Documented by: MARITZA Promethazine HCl 6.25 mg/ (Sodium Chloride) 50.25 mls @ 201 mls/hr IV ONCE PRN PRN Reason: Nausea and Vomiting Ondansetron HCl (Ondansetron Hcl 4 Mg/2 Ml Vial) 4 mg IVPUSH ONCE PRN PRN Reason: Nausea and Vomiting Labs CBC & Chem 7: 03/08/21 08:15 03/08/21 08:15 Labs: Laboratory Results - last 24 hr 03/07/21 08:35 Urine Test NEGATIVE Procedures Date of Service Date of Service: 03/08/21 Progress Note: A&P Assessment and plan (1) S/P laparoscopic sleeve gastrectomy: Status: Acute Assessment and Plan: s/p laparoscopic sleeve gastrectomy, repair of diaphragmatic hernia, and gastro pexy Doing well Check am labs. If OK, will discharge home? (2) S/P repair of paraesophageal hernia: Status: Acute (3) Paraesophageal hernia: Status: Acute (4) Obesity: (5) BMI 36.0-36.9,adult: (6) ADHD (attention deficit hyperactivity disorder): (7) Major depressive disorder: (8) GERD (gastroesophageal reflux disease): Status: Acute (9) Liver fibrosis: Status: Acute (10) Steatosis, liver: Status: Acute Fall Risk Details Current Medications: Current Medications Fentanyl (Fentanyl Citrate/Pf 100 Mcg/2 Ml Vial) 25 mcg IVPUSH Q5M PRN; Protocol PRN Reason: Pain, Moderate (Pain Scale 4-6 Hydromorphone HCl (Hydromorphone Hcl 0.5 Mg/0.5 Ml Syringe) 0.25 mg IVPUSH Q5M PRN; Protocol PRN Reason: Pain, Severe (Pain Scale 7-10) Lactated Ringer's (Lr) 1,000 mls @ 100 mls/hr IVCONT .Q10H LOLY Last Admin: 03/07/21 08:59 Dose: 100 mls/hr Documented by: Promethazine HCl 6.25 mg/ (Sodium Chloride) 50.25 mls @ 201 mls/hr IV ONCE PRN PRN Reason: Nausea and Vomiting Ondansetron HCl (Ondansetron Hcl 4 Mg/2 Ml Vial) 4 mg IVPUSH ONCE PRN PRN Reason: Nausea and Vomiting Time Spent With Patient Time: Total time spent is greater than 50% in coordination of care (as documented) at patient's floor/unit and/or counseling patient: Time with patient: less than 15 minutes Quality Stroke Does the patient have a stroke diagnosis?: No VTE Prior VTE?: No VTE Risk Level:: Surgical - moderate VTE Device Contraindication: N/A - Device Ordered VTE Drug Contraindication: Treatment Not Indicated
[2021-03-07 13:50] LABS: Hematocrit 40.9 % (37.0-47.0); Hemoglobin 13.1 g/dl (12.0-16.0)
[2021-03-07 14:06] LABS: Anion Gap 15 (12-20); Blood Urea Nitrogen 12 mg/dL (9-16); Calcium 8.6 mg/dL (8.4-10.2); Carbon Dioxide 19 mmol/L (22-29); Chloride 109 mmol/L (96-108); Creatinine Clr Calc Pharmacy 125.5; Estimated Glomerular Filt Rate > 60; Glucose Random 98 mg/dL (60-115); Sodium 139 mmol/L (135-145)
[2021-03-07] MEDS: Famotidine/PF 20 MG/2 ML VIAL IVPUSH ×2 (14:06→21:05)
[2021-03-07] MEDS: 0.9 % Sodium Chloride Flush 3 ML SYRINGE IVFLUSH (15:24)
[2021-03-07] MEDS: HYDROmorphone HCl 0.5 MG/0.5 ML SYRINGE 0.25 MG IVPUSH (17:30)
[2021-03-07] MEDS: ondansetron HCL 4 MG/2 ML VIAL IVPUSH (19:29)
--- NOTE | 2021-03-07 19:47 | PC.NURSE ---
OOB AMBULATED TO BATHROOM TO VOID 200 ML YELLOW URINE. PATIENT AMBULATE IN PACU AREA. STEADY GAIT. RETURNED TO BED, HELPED REPOSITION PATIENT FOR POSITION OF COMFORT. PATIENT REPORTS MORE COMFORTABLE NOW THAT SHES AMBULATED
--- NOTE | 2021-03-07 20:44 | PC.NURSE ---
PATIENT AWAKE, COMPLAINTS OF RIGHT UPPER BACK, SHOULDER, AND NECK DISCOMFORT. REPOSITIONED PATIENT. GENTLE MASSAGE TO THE AREA IN ATTEMPT TO GIVE RELIEF AND ICE PACKS APPLIED. PATIENT REPORTS NO ABDOMINAL PAIN PRIMARY MUSCLE AND SKELETAL DISCOMFORT. EDUCATED DILAUDID DOSE TOO EARLY AND RELATED TO HR BARDYCARDIA 50'S TRIAL FOR SYMPTOMATIC RELIEF. IV TYLENOL GTT INFUSING ORDERED
[2021-03-07] MEDS: Metoclopramide HCl 10 MG/2 ML VIAL IVPUSH (21:29)
--- NOTE | 2021-03-07 21:33 | PC.NURSE ---
2100 EREN CULP, NOTIFIED PATIENT WITH COMPLAINTS RIGHT UPPER NECK, BACK, SHOULDER PAIN. PATIENT MINIMAL RELIEF FROM DOSE OF DILAUDID. INTERMITTENT HR LOW 43 WHILE DOZING BASELINE MID 50'S. ALSO CLARIFIED PEPCID ORDER FIRST DOSE GIVEN AT 1400. PA INDICATED ENCOURAGE PATIENT TO WALK PAIN LIKELY GAS RELATED. PER PA OK TO GIVE PEPCID DOSE AT 2100. PATIENT AMBULATED LENGHT OF PACUX2. UPON RETURN INDICATED PREFERENCE TO REST IN RECLINER. REPORTED NAUSEA WITH MOVEMENT MEDICATED IV REGLAN ORDERED.
--- NOTE | 2021-03-07 23:32 | PC.NURSE ---
Pt ambulated length of PACU and then to bathroom where voided. Pt back to bed. Gait steady
[2021-03-08] MEDS: Lactated Ringers 1,000 ML 100 ML IVCONT (00:17)
[2021-03-08 01:37] VITALS: BP 138/87; PULSE 51; RESP 18; TEMP 36.6; O2SAT 97
--- NOTE | 2021-03-08 04:34 | PC.NURSE ---
Pt awakened spontaneously. Pt sitting up in bed. When asked if she could be made more comfortable, pt declined.
[2021-03-08] MEDS: ondansetron HCL 4 MG/2 ML VIAL IVPUSH (04:47)
[2021-03-08 06:00] VITALS: BP 123/73; PULSE 54; RESP 18; TEMP 36.3; O2SAT 96
--- NOTE | 2021-03-08 07:07 | PC.NURSE ---
Report to Alexia Zhu RN. Physician specific documentation including diet log reviewed with oncoming RN
[2021-03-08 08:18] LABS: MANUAL DIFF FLAG NO
[2021-03-08 08:25] LABS: Basophils Percent Auto 0.2 % (0-2); Hematocrit 38.3 % (37.0-47.0); Hemoglobin 12.4 g/dl (12.0-16.0); Imm Gran Abs Auto 0.04 X10*3/uL (0.00-0.03); Imm Gran Pct Auto 0.3 % (0.0-0.4); Lymphocytes Absolute Auto 1.5 X10*3/uL (1.2-4.9); Lymphocytes Percent Auto 12.4 % (20-40); Mean Corpuscular HGB Conc 32.4 g/dl (31.0-35.0); Mean Corpuscular Hemoglobin 27.7 pg (27.0-33.0); Mean Corpuscular Volume 85.7 fL (80.0-98.0); Mean Platelet Volume 10.2 fL (9.4-12.3); Monocytes Percent Auto 8.1 % (2-11); Neutrophils Absolute Auto 9.4 x10*3/uL (2.0-8.3); Platelet Count 255 X10*3/uL (160-400); Red Blood Count 4.47 X10*6/uL (4.20-5.50); Red Cell Distribution Width 13.1 % (11.0-16.0); White Blood Count 11.9 X10*3/uL (4.8-10.8)
[2021-03-08 08:55] LABS: Anion Gap 14 (12-20); Blood Urea Nitrogen 9 mg/dL (9-16); Calcium 8.9 mg/dL (8.4-10.2); Carbon Dioxide 19 mmol/L (22-29); Chloride 107 mmol/L (96-108); Creatinine Clr Calc Pharmacy 128.7; Estimated Glomerular Filt Rate > 60; Glucose Random 92 mg/dL (60-115); Potassium 4.4 mmol/L (3.3-5.1); Sodium 136 mmol/L (135-145)
--- NOTE | 2021-03-08 12:42 | HO.POSTANES ---
Post Anesthesia Evaluation Post Anesthesia Evaluation Vital Signs: Vital Signs Temp Pulse Resp BP Pulse Ox 03/08/21 06:00 97.3 F 54 18 123/73 96 03/08/21 01:37 97.8 F 51 18 138/87 97 Anesthesia: General Endotracheal-GETA Mental Status: Awake Pain Control: Satisfactory Nausea/Vomiting: None Hydration: Adequate Anesthesia-Related Issues: No Anes. Related Issues
[2021-03-09 17:31] LABS: Vitamin A 37 mcg/dL (38-98)
== END 2021-03-08 08:23 | disposition home or self-care (01) | DRG 620 ==
PROVIDERS: Nurse Practitioner; Physician Assistant; Admitting Provider Surgery; PCP Nurse Practitioner Adult Health; Visit Provider Surgery
PROC: 0DB64Z3 Excision of Stomach, Percutaneous Endoscopic Approach, Vertical (ICD-10-PCS; CPT 43845; principal; 2021-03-07 10:10)
DX: E66.01 Morbid (severe) obesity due to excess calories (principal); K44.0 Diaphragmatic hernia with obstruction, without gangrene; F90.9 Attention-deficit hyperactivity disorder, unspecified type; K21.9 Gastro-esophageal reflux disease without esophagitis; F32.A Depression, unspecified; K76.0 Fatty (change of) liver, not elsewhere classified; K74.00 Hepatic fibrosis, unspecified; Z68.36 Body mass index [BMI] 36.0-36.9, adult; Z20.822 Contact with and (suspected) exposure to COVID-19; Z88.0 Allergy status to penicillin; Z79.899 Other long term (current) drug therapy
CPT/HCPCS: 36415; 80048; 80053; 80061; 81025; 83036; 83525; 84443; 84590; 85014; 85018; 85025; 85610; 85730; 86140; 86850; 86900; 86901; 87635; 88307; 88342; 99024; A4649; J0131; J1100; J1170; J1956; J2250; J2405; J2765; J3010

== ENCOUNTER → 2021-03-13 07:48 | Outpatient (BNVA) | payer OTHER, SELFPAY | PROVIDERS: PCP Nurse Practitioner Adult Health; Visit Provider Surgery ==

== ENCOUNTER → 2021-04-14 08:25 | Outpatient (BNVA) | payer OTHER, SELFPAY | PROVIDERS: PCP Nurse Practitioner Adult Health; Visit Provider Surgery ==

== ENCOUNTER → 2021-05-15 08:52 | Outpatient (BNVA) | payer OTHER, SELFPAY | PROVIDERS: PCP Nurse Practitioner Adult Health; Visit Provider Physician Assistant Surgical | DX: E66.9 Obesity, unspecified (principal); Z79.899 Other long term (current) drug therapy | CPT/HCPCS: 99212 ==

== ENCOUNTER → 2021-06-20 08:17 | Outpatient (BNVA) | payer OTHER, SELFPAY | PROVIDERS: PCP Nurse Practitioner Adult Health; Visit Provider Dietitian, Registered | DX: E66.3 Overweight (principal); Z68.28 Body mass index [BMI] 28.0-28.9, adult | CPT/HCPCS: 97803 ==